=== PATIENT | male | born 1985 | race Caucasian/White ===

== ENCOUNTER → 2021-09-28 | Outpatient (CLI) | payer BC ==
--- NOTE | 2021-09-28 10:00 | ECHOF ---
Referral Reason:CP R07.9 MEASUREMENTS -------- HEIGHT: 180.3 cm WEIGHT: 72.6 kg BP: RVIDd: 2.2 cm (< 3.3) IVSd: 1.0 cm (0.6 - 1.1) LVIDd: 3.9 cm (3.9 - 5.3) LVPWd: 1.3 cm (0.6 - 1.1) IVSs: 1.6 cm LVIDs: 2.6 cm LVPWs: 1.7 cm LAESV Index (A-L): 16.03 ml/m Ao Diam: 3.3 cm (2.0 - 3.7) AV Cusp: 2.2 cm (1.5 - 2.6) LA Diam: 3.1 cm (2.7 - 3.8) MV EXCURSION: 22.907 mm (> 18.000) MV EF SLOPE: 213 mm/s (70 - 150) EPSS: 1.7 cm MV E Dani: 0.93 m/s MV DecT: 97 ms MV A Dani: 0.57 m/s MV E/A Ratio: 1.62 RAP: 5.00 mmHg RVSP: 9.79 mmHg FINDINGS -------- Sinus rhythm. This was a technically adequate study. The left ventricular size is normal. Left ventricular wall thickness is normal. Overall left vent ricular systolic function is normal with, an EF between 55 - 60 %. The diastolic filling pattern is normal for the age of the patient 6.23. The right ventricle is normal in size. Normal LA size by volume 22+/-6 ml/m2. The right atrial size is normal. The aortic valve is trileaflet, and appears structurally normal. No aortic stenosis or regurgitation. The mitral valve is normal. There is trace mitral regurgitation. The tricuspid valve appears structurally normal. Trace tricuspid regurgitation present. Right qi tricular systolic pressure is normal at < 35 mmHg. There is no evidence of pulmonary hypertension. There is no pulmonic regurgitation present. The aortic root size is normal. Normal inferior vena cava with normal inspiratory collapse consistent with estimated right atrial pre ssure of 5 mmHg. There is no pericardial effusion. CONCLUSIONS -------- 1. Left ventricular wall thickness is normal. 2. Overall left ventricular systolic function is normal with, an EF between 55 - 60 %. 3. The diastolic filling pattern is normal for the age of the patient 6.23 4. The aortic valve is trileaflet, and appears structurally normal. No aortic stenosis or regurgitati on. 5. There is trace mitral regurgitation. 6. Trace tricuspid regurgitation present. 7. There is no pericardial effusion. HEARING CARE PRACTITIONER: Lesli Hanks RDCS
--- NOTE | 2021-09-28 15:25 | EST ---
EXERCISE STRESS AGE: 36 SEX: M HT: 5'10" WT: 160 lbs. PROTOCOL: Richar STAGE: 5 DURATION OF EXERCISE: 12:55 HEART RATE REST: 56 BLOOD PRESSURE REST: 136/85 MAXIMUM HEART RATE ACHIEVED: 162 MAXIMUM BLOOD PRESSURE: 203/78 85% MPHR: 157 100% MPHR: 185 METS: 13.3 INDICATIONS: Chest pain CLINICAL INFORMATION: Baseline rhythm is sinus mechanism, rate of 56, normal axis and intervals. Normal electrocardiogram. Baseline blood pressure 136/85 mmHg. Patient exercised on Richar protocol for 12 minutes 55 seconds, reaching a peak rate of 162 beats per minute, which is equal to 88% of maximum predicted heart rate. Peak blood pressure 203/78 mmHg. Test was terminated secondary to fatigue. There was no chest pain. Electrocardiograph monitoring revealed no evidence of diagnostic ischemic ST deviation. RESULTS: 1. Good exercise sounds was normal electrocardiographic response to exercise. 2. Normal stress electrocardiogram with no evidence of stress-induced ischemia. MMODL / IJN: [id number] /
== END | disposition home or self-care (01) ==
LOC: RADNMMAIN 08:44
PROVIDERS: ATTEND Family Medicine
DX: I08.1 Rheumatic disorders of both mitral and tricuspid valves (principal)
CPT/HCPCS: 93017; 93306